=== PATIENT | female | born 1955 ===

== ENCOUNTER → 2019-07-25 06:15 | Day surgery (SDC) | payer MEDICARE, BC ==
[~2019-07-25 06:15] MED LIST: Acetaminophen TAB* 325 MG PO PRN; Buffered Lidocaine 1% SYRIN* 1 ML/SYRINGE INTRADERM ONE; Bupivacaine 0.5%* 50 ML MDV VIAL ONE; Chloroprocaine 2%* 20 ML VIAL ONE; Lactated Ringers 1000 ML Bag* 1,000 ML IV SCH; Lidocaine 2% PF * 5 ML VIAL ONE; Midazolam* 1 MG/ML 2 ML VIAL (2 MG) ONE; Naloxone* 0.4 MG/ML 1 ML VIAL IV PRN; Ondansetron INJ* 2 MG/ML VIAL IV PRN; Propofol* 10 MG/ML 20 ML BTL ONE; Propofol* 500 MG/50 ML BTL ONE; ceFAZolin 2 GM in NS PREMIX(*) 2 GM/100 ML BAG IVPB ONE; fentaNYL* 50 MCG/ML 2 ML VIAL (100 MCG VIAL) IV PRN; oxyCODONE TAB* 5 MG TAB PO PRN
--- NOTE | 2019-07-25 10:14 | OP ---
Operative Report - Blank - Operative Report Date of Operation: 07/25/19 Note: PATIENT: Zeanida Nina DATE OF : 1955 DATE OF SURGERY: 07/25/2019 SURGEON: Miguelito Mansfield MD HAND GLUER AND SLICER: ANTOINETTE Montelongo, whos assistance was necessary for positioning, retraction, help with instrumentation, and closure. ANESTHESIOLOGIST: Dr. 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 OPERATION: 1. Right 2nd MTP joint arthrotomy, synovectomy, and removal of loose bodies. 2. Right 2nd metatarsal head debridement and microfracture. 2. Right 2nd metatarsal head and proximal phalanx saucerizations. 3. Right 2nd MTP joint soft tissue interposition arthroplasty. ANESTHESIA: Spinal IMPLANTS: none TOURNIQUET TIME: Less than 1 hour with a well-padded thigh tourniquet at 250mmHg SPECIMENS: none ESTIMATED BLOOD LOSS: minimal COMPLICATIONS: none STATUS: Stable from the operating room to the recovery room and then home. INDICATIONS FOR PROCEDURE: Zenaida has been suffering from pain at her right 2nd MTP joint from Freibergs infraction. Both operative and non-operative treatment alternatives were reviewed. Further, the nature and risks of surgery were reviewed in careful detail. Our discussions regarding the risks of surgery included, but were not limited to, infection, wound problems, nerve injury, neuroma, RSD, persistent symptoms, blood clot, need for further surgery, failure of the surgery, and even the remote chance of catastrophic complication. DESCRIPTION OF PROCEDURE: The patient was seen in the preoperative holding unit and informed written consent was obtained. The appropriate extremity was marked. The patient was then brought to the operating room and carefully positioned on the operating room table. Anesthesia was induced. All bony prominences were padded with great care. A well-padded thigh tourniquet was placed. A chlorhexidine based pre- scrub was performed followed by a chloraprep prep and drape in standard sterile fashion. A surgical safety pause was then conducted in which we confirmed the appropriate patient, extremity, planned procedure, availability of equipment, indication and administration of prophylactic antibiotics, and DVT prophylaxis in the form of a compression boot on the non-surgical extremity. I began with an Esmarch exsanguination of the limb and inflated the tourniquet. A longitudinal dorsal incision was made, centered at the second MTP joint. I carefully dissected down to the joint capsule. An arthrotomy was made longitudinally to enter the second MTP joint. There was extensive synovitis throughout the joint, which was sharply excised with a 15 blade scalpel and rongeur. There was a large loose body piece of cartilage sitting in the joint. This was excised. I then examined the second metatarsal head, which had a large cavitary defect. Using 15 blade scalpel to remove loose cartilage around the edge of the defect. I then used a curette to debride the defect of any nonviable. Remaining cartilage, calcified cartilage, and necrotic bone. There appeared to be a nice subchondral bone bed, so I performed a microfracture with a 0.045 K wire at the second metatarsal head defect. There were osteophytes dorsally, as well as medially and laterally, at the articular surface of the proximal phalanx and second metatarsal head. I excised these osteophytes with a rongeur on both the proximal phalanx and second metatarsal head, thus performing a saucerization of each. This improved the joint motion, especially with dorsiflexion. I then defined the EDL and EDB tendons dorsally. I tracked the EDB tendon proximally and transected it proximally. I then curled the EDB tendon into a tendon ball and placed 0 Vicryl suture to hold it. A Kain needle was used to pass the ends of the 0 Vicryl through the plantar plate and out the plantar aspect of the foot. This dunked the EDB tendon ball nicely into the second MTP joint. It sat nicely in the cavitary defect of the second metatarsal head. I then tied the 0 Vicryl over the skin plantarly. This provided a nice soft tissue interposition arthroplasty at the second MTP joint. The wound was then copiously irrigated and meticulously closed in layers utilizing 3-0 Monocryl for the capsular layer and the dermal layer and 3-0 nylon for the skin. A sterile dressing was then applied. The patient was then awakened from anesthesia and transferred to the recovery room in stable condition. There were no complications. All needle and sponge counts were correct at the end of the case. ATTESTATION: I attest I was present and scrubbed and performed the critical portions of the procedure myself. POSTOPERATIVE PLAN: She will remain heel weightbearing in a postoperative shoe. The plan is for suture removal in 2 weeks and progression to full weightbearing in the postoperative shoe as tolerated. She will take aspirin for DVT prophylaxis.
[2019-07-25 11:59] VITALS: BP 164/85
== END | disposition home or self-care (01) ==
LOC: OR 06:15
PROVIDERS: ATTEND Orthopaedic Surgery
DX: M92.71 Juvenile osteochondrosis of metatarsus, right foot (principal); I34.1 Nonrheumatic mitral (valve) prolapse; M19.90 Unspecified osteoarthritis, unspecified site; L71.9 Rosacea, unspecified; F32.9 Major depressive disorder, single episode, unspecified
CPT/HCPCS: C1776; J0690; J2250; J2400; J2704; J3490